=== PATIENT | female | born 1950 | race Caucasian/White ===

== ENCOUNTER 2022-01-02 11:40 | Inpatient (IN) | payer OTHER, MEDICARE, SELFPAY ==
--- NOTE | ~2022-01-02 | XR_ITS ---
EXAMINATION: XR CHEST CLINICAL INFORMATION: Mental status change COMPARISON: None TECHNIQUE: Frontal view of the chest was obtained. FINDINGS: The cardiac and mediastinal contours are normal. The lungs are clear. There is no pleural effusion or pneumothorax. There are degenerative changes of the spine. XR/XR chest 1V IMPRESSION: No evidence for acute disease in the chest.
--- NOTE | ~2022-01-02 | MR_ITS ---
EXAMINATION: MR BRAIN WITHOUT CONTRAST CLINICAL INFORMATION: Seizures. COMPARISON: CT head from 01/02/2022. TECHNIQUE: MRI of the brain was obtained using routine sequences without contrast. FINDINGS: Changes of left parietal craniotomy. No focal restricted diffusion is demonstrated to suggest acute or subacute cerebral ischemia. No evidence of acute or chronic hemorrhagic products on heme-sensitive imaging. Scattered periventricular and deep white matter T2 FLAIR hyperintensities consistent with mild underlying microangiopathy. Proportional prominence of the ventricles and sulcal spaces without evidence of obstructive hydrocephalus. No abnormal mass effect. No midline shift. The hippocampi are symmetric in size, contour, and signal intensity. The temporal horns appear symmetric. Normal appearance of the pituitary gland. Normal positioning of the cerebellar tonsils. Normal arterial and venous vascular flow voids are present. Normal, homogeneous marrow signal. Moderate degenerative spondyloarthropathy of the visualized upper cervical spine. Mild mucosal thickening of the paranasal sinuses. Small mucous retention cyst within the left maxillary sinus. No signal abnormalities within the mastoids. MR/MR head/brain wo con IMPRESSION: 1. No acute intracranial abnormalities. 2. Mild underlying microangiopathy. 3. No additional demonstrated abnormalities to explain the patient's symptoms
--- NOTE | ~2022-01-02 | CT_ITS ---
EXAMINATION: CT ANGIOGRAM OF THE CHEST WITH AND WITHOUT CONTRAST (CT PULMONARY ANGIOGRAM FOR PE) CLINICAL INFORMATION: Reason for Exam Hypoxia, recent travel, elevated D-dimer. COMPARISON: Previous chest x-ray from earlier the same day TECHNIQUE: Prior to contrast administration, noncontrast localization images were obtained. Subsequently, multidetector volumetric imaging was performed from the thoracic inlet to below the diaphragms following the administration of 61 mL Omnipaque 350 intravenous contrast. No contrast reaction reported Sagittal, coronal, and MIP oblique sagittal reformatted images were obtained on the CT workstation, uploaded to PACS, and reviewed. This CT examination was performed using dose optimization techniques as appropriate, variously including the following: *Automated exposure control *Adjustment of mA and/or kV according to patient size (this includes techniques or standardized protocols for targeted exams where dose is matched to indication/reason for exam; i.e. extremities or head) *Use of iterative reconstruction technique Total exam dose-length product 341 mGy-cm FINDINGS: QUALITY OF STUDY/CONTRAST BOLUS: Satisfactory. PULMONARY ARTERIES: No central or segmental pulmonary emboli. THORACIC AORTA: No aneurysm or dissection. LUNG: There is elevation of the right hemidiaphragm. There is subsegmental atelectasis in both lower lobes. The lungs are otherwise clear. PLEURA: No pleural effusion or pneumothorax. MEDIASTINUM: Normal heart size. Very small pericardial effusion. Small mediastinal lymph nodes.. No evidence of septal bowing or right heart strain. CHEST WALL/AXILLA: No axillary or internal mammary lymphadenopathy. OSSEOUS STRUCTURES: No acute or suspicious osseous abnormality. Degenerative changes of the spine. UPPER ABDOMEN: There is diverticulosis of the colon. No reflux of contrast into the hepatic veins to suggest elevated right heart pressures. CT/CT angio chest PE protocol IMPRESSION: No evidence of pulmonary embolism. Elevated right hemidiaphragm. Subsegmental atelectasis in both lower lobes. VTE: negative
--- NOTE | ~2022-01-02 | CT_ITS ---
EXAMINATION: CT CERVICAL SPINE WITHOUT CONTRAST CLINICAL INFORMATION: Neck pain post seizure COMPARISON: None TECHNIQUE: Axial images through the cervical spine without contrast. Sagittal and coronal reconstructions on the technologist workstation were performed. This CT examination was performed using dose optimization techniques as appropriate, variously including the following: *Automated exposure control *Adjustment of mA and/or kV according to patient size (this includes techniques or standardized protocols for targeted exams where dose is matched to indication/reason for exam; i.e. extremities or head) *Use of iterative reconstruction technique DLP: 518 mGy-cm FINDINGS: Bone alignment is normal. No fracture or dislocation is seen. There is degenerative spondylosis and degenerative disc disease from C3-C4 to T1-T2. There is narrowing of the spinal canal from bony osteophyte or calcified disc osteophyte complex greatest at C5-C6. There are degenerative changes at the C1 dens articulation. Prevertebral soft tissues are normal. Visualized lung apices are clear. CT/CT cervical spine wo con IMPRESSION: Degenerative changes. No fracture or dislocation seen. Fleischner guidelines were followed.
--- NOTE | ~2022-01-02 | CT_ITS ---
EXAMINATION: CT HEAD WITHOUT CONTRAST (STROKE PROTOCOL) CLINICAL INFORMATION: Stroke protocol. Change in mental status. COMPARISON: None TECHNIQUE: Contiguous axial imaging was performed from the skull base to vertex without intravenous administration of contrast. This CT examination was performed using dose optimization techniques as appropriate, variously including the following: *Automated exposure control *Adjustment of mA and/or kV according to patient size (this includes techniques or standardized protocols for targeted exams where dose is matched to indication/reason for exam; i.e. extremities or head) *Use of iterative reconstruction technique DLP: 669 mGy-cm. FINDINGS: There is no intracranial hemorrhage, hematoma, or extra-axial fluid collection. The ventricles are normal in size. There is no hydrocephalus, edema, or mass effect. The kendrick-white matter differentiation appears symmetric. There is no acute infarct or mass lesion. There are postsurgical changes to the left anterior parietal bone with craniotomy defect. The calvarium appears otherwise intact. There is no pneumocephalus or orbital emphysema. The visualized sinuses and middle ears and mastoid air cells show no significant mucosal thickening. There are no air-fluid levels. CT/CT head for stroke IMPRESSION: No acute intracranial pathology. Postsurgical change to the left anterior parietal lobe. This critical result was discussed with Dr. Parks at 1226 hours on 01/02/2022. It was ascertained that the content and urgency of the report was understood at the time of direct communication.
[2022-01-02 11:42] VITALS: BP 133/64; PULSE 78; RESP 18; TEMP 36.8; O2SAT 98; BMI 27.4
--- NOTE | 2022-01-02 11:59 | ECG_ITS ---
Test Reason : ?STROKE Blood Pressure : / mmHG Vent. Rate : 077 BPM Atrial Rate : 077 BPM P-R Int : 158 ms QRS Dur : 078 ms QT Int : 410 ms P-R-T Axes : 063 038 085 degrees QTc Int : 463 ms Normal sinus rhythm Nonspecific T wave abnormality Borderline ECG No previous ECGs available Referred By: Jorge Parks Electronically Signed By:TORREY AGUIAR
[2022-01-02 12:04] LABS: Glucose, Whole Blood 120 mg/dL (60-115)
[2022-01-02 12:07] LABS: MANUAL DIFF FLAG NO
[2022-01-02 12:08] LABS: Basophils Percent Auto 0.2 % (0-2); Hematocrit 40.4 % (37.0-47.0); Hemoglobin 13.8 g/dl (12.0-16.0); Imm Gran Abs Auto 0.07 X10*3/uL (0.00-0.03); Imm Gran Pct Auto 0.5 % (0.0-0.4); Lymphocytes Absolute Auto 1.3 X10*3/uL (1.2-4.9); Lymphocytes Percent Auto 9.6 % (20-40); Mean Corpuscular HGB Conc 34.2 g/dl (31.0-35.0); Mean Corpuscular Hemoglobin 32.7 pg (27.0-33.0); Mean Corpuscular Volume 95.7 fL (80.0-98.0); Mean Platelet Volume 10.3 fL (9.4-12.3); Monocytes Absolute Auto 0.5 X10*3/uL (0.1-1.2); Monocytes Percent Auto 3.3 % (2-11); Neutrophils Absolute Auto 11.8 x10*3/uL (2.0-8.3); Neutrophils Percent Auto 86.4 % (45-73); Platelet Count 287 X10*3/uL (160-400); Red Blood Count 4.22 X10*6/uL (4.20-5.50); Red Cell Distribution Width 11.9 % (11.0-16.0); White Blood Count 13.7 X10*3/uL (4.8-10.8)
[2022-01-02 12:12] LABS: Prothrombin Time Whole Bld POC 11.3 sec (11.1-13.5); ~PT, ~INR - Anti Coag Clinic 0.9 (0.9-1.1)
[2022-01-02 12:14] LABS: Prothrombin Time 11.4 SEC (9.9-13.0)
[2022-01-02 12:16] LABS: Partial Thromboplastin Time 37.8 SEC (24.1-38.0)
[2022-01-02 12:24] LABS: Anion Gap 14 (12-20); Blood Urea Nitrogen 22 mg/dL (9-16); Calcium 9.4 mg/dL (8.4-10.2); Carbon Dioxide 26 mmol/L (22-29); Chloride 103 mmol/L (96-108); Creatinine Clr Calc Pharmacy 76.2; Estimated Glomerular Filt Rate > 60; Glucose Random 128 mg/dL (60-115); Potassium 4.3 mmol/L (3.3-5.1); Sodium 139 mmol/L (135-145)
[2022-01-02 12:41] LABS: Troponin-I High Sensitivity 158.1 ng/L (<3.5-17.0)
--- NOTE | 2022-01-02 12:43 | ED_ITS ---
HPI - Neuro Symptoms/Deficit General Chief Complaint: Stroke Stated Complaint: quest of stroke Time Seen by Provider: 01/02/22 11:59 Source: patient and family (Son and daughter) Mode of arrival: ambulatory Limitations: no limitations History of Present Illness HPI Narrative: 71-year-old female brought in by her son for possible seizure versus stroke. 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 At 11:00 she was sitting in bed talking to her son who observed seizure activity with her extremities and patient was staring and him without responding to him lasted for less than a minute, then patient became confused and disoriented for sometimes until patient gradually regained her normal status, patient still sustaining intermittent mild dysarthria because the laceration on her tongue.Otherwise no gross weakness or loss of sensation. Patient declined chest pain. Related Data Home Medications Medication Instructions Recorded Confirmed atorvastatin 40 mg tablet 1 tab PO DAILY 01/02/22 01/02/22 escitalopram oxalate 10 mg tablet 1 tab PO BEDTIME 01/02/22 01/02/22 escitalopram oxalate 20 mg tablet 1 tab PO QAM 01/02/22 01/02/22 meloxicam 15 mg tablet 1 tab PO DAILY 01/02/22 01/02/22 oxcarbazepine 150 mg tablet 2 tab PO BID 01/02/22 01/02/22 Allergies Allergy/AdvReac Type Severity Reaction Status Date / Time No Known Allergies Allergy Verified 01/02/22 11:59 Review of Systems Review of Systems: All other systems are reviewed and are negative Constitutional: Reports as per HPI and Reports no additional constitutional complaints Eyes: Reports as per HPI and Reports no additional eye complaints Reports system reviewed and no additional complaints, except as documented Cardiovascular: Reports as per HPI and Reports no additional cardiovascular complaints Respiratory: Reports as per HPI and Reports no additional respiratory complaints Gastrointestinal: Reports as per HPI and Reports no additional gastrointestinal complaints Genitourinary: Reports no additional female genitourinary complaints Musculoskeletal: Reports no additional musculoskeletal complaints Skin/Breast: Reports system reviewed and no additional complaints, except as docu Psychiatric: Reports no additional psychiatric complaints Endocrine: Reports no additional endocrine complaints Hematologic/Lymphatic: Reports no additional hematologic/lymphatic complaints Allergic/Immunologic: Reports no additional allergic/immunologic complaints Reports system reviewed and no additional complaints, except as documented and Reports Abnormal speech present [facility] Social History Social History Advance Directives: No Advance Directives Information Provided: No Physical Exam Vital Signs: Vital Signs: Last Vital Signs Temp 99.9 F 01/02/22 15:06 Pulse 79 01/02/22 15:06 Resp 22 H 01/02/22 15:06 BP 101/52 L 01/02/22 15:06 Pulse Ox 92 01/02/22 15:06 BMI result Body Mass Index 27.4 Vital signs have been reviewed as appeared to be correct. Blood pressure normal. Heart rate normal. Respiration rate normal. Temperature normal. Oxygen saturation normal. Appearance: Alert. Oriented X3. No acute distress. Head: Normal external exam. Normocephalic. Atraumatic. No Lucio signs noted. No raccoon eyes noted Eyes: PERRLA. EOMI. Conjunctiva and sclera normal. Eyelids normal. ENT: TM's Normal. Pharynx normal. Uvula midline. Moist mucous membranes. No trismus noted. No drooling noted. No muffled voice noted. Small laceration on right side of the tongue with no active bleeding. Neck: Normal inspection. Neck supple. FROM. No adenopathy. Thyroid Normal. No meningeal signs. No neck mass noted. CVS: Normal heart rate and rhythm. Heart sound normal. No murmurs noted. Pulses normal throughout. Respiratory: No respiratory distress. Painless inspiration. Breath sounds normal. No wheezes/rales/rhonchi noted. Chest nontender. No accessory muscle usage noted or decreased air movement noted. Abdomen: Soft and nontender. Bowel sounds normal in all 4 quadrants. No distention noted. No organomegaly noted. No visible injury noted. Back: No CVA tenderness. Full range of motion noted. Skin: Skin warm and dry. Normal skin color. Normal skin turgor. No rashes/lesions/lacerations noted. Extremities: No lower extremity edema. Extremities exhibit normal range of motion. Extremities nontender. Neuro: Oriented X 3. Cranial nerve exam: II-XII are grossly intact No motor deficit. No sensory deficit. Reflexes normal. Course Course Course Narrative: Assessment and plan. 71-year-old female brought him by family for change mental status, being dysarthric, with episodes of mental status changes and disorientation, presentation and clinical scenario is consistent with likely seizure. Case discussed with Dr. Romano, will load with Keppra 1000 mg p.o., admit for EEG, and MRI in the morning. 2. Patient found to be hypoxic in the emergency department for unclear etiology because the recent travel from [place] and mildly elevated D-dimer CT of the chest was considered which showed no acute pathology. 3. Patient has no chest pain, EKG is unremarkable for acute ischemic or ACS, 1st troponin was elevated, 2nd troponin 3 hours later is trending down, patient is still asymptomatic with no chest pain or shortness of breath. MDM - Neuro Symptoms/Deficit Medical Records Attestation: I reviewed the patient's medical records. Lab Data Attestation: I reviewed the patient's lab results. Result diagrams: 01/02/22 12:04 01/02/22 12:04 Labs: Lab Results 01/02/22 01/02/22 01/02/22 Range/Units 11:57 11:58 12:04 WBC 13.7 H (4.8-10.8) X10*3/uL RBC 4.22 (4.20-5.50) X10*6/uL Hgb 13.8 (12.0-16.0) g/dl Hct 40.4 (37.0-47.0) % MCV 95.7 (80.0-98.0) fL MCH 32.7 (27.0-33.0) pg MCHC 34.2 (31.0-35.0) g/dl RDW 11.9 (11.0-16.0) % Plt Count 287 (160-400) X10*3/uL MPV 10.3 (9.4-12.3) fL Immature Gran % (Auto) 0.5 H (0.0-0.4) % Neut % (Auto) 86.4 H (45-73) % Lymph % (Auto) 9.6 L (20-40) % [place] % (Auto) 3.3 (2-11) % Eos % (Auto) 0.0 (0-4) % Baso % (Auto) 0.2 (0-2) % Lymph # (Auto) 1.3 (1.2-4.9) X10*3/uL [place] # (Auto) 0.5 (0.1-1.2) X10*3/uL Eos # (Auto) 0.0 (0.0-0.4) X10*3/uL Baso # (Auto) 0.0 (0.0-0.2) X10*3/uL Abs Immat Gran (auto) 0.07 H (0.00-0.03) X10*3/uL Absolute Neuts (auto) 11.8 H (2.0-8.3) x10*3/uL Absolute Nucleated RBC 0.000 (0.0-0.012) X10*3/uL Nucleated RBC % (auto) 0.0 (0.0-0.2) /100WBC PT (9.9-13.0) SEC Whole Blood PT 11.3 (11.1-13.5) sec INR (0.9-1.1) Whole Blood INR 0.9 (0.9-1.1) APTT (24.1-38.0) SEC D-Dimer High Sensitivty NG/ML Sodium (135-145) mmol/L Potassium (3.3-5.1) mmol/L Chloride (96-108) mmol/L Carbon Dioxide (22-29) mmol/L Anion Gap (12-20) BUN (9-16) mg/dL Creatinine (0.5-1.4) mg/dL Estim Creat Clear Calc Estimated GFR POC Glucose 120 H (60-115) mg/dL Random Glucose (60-115) mg/dL Calcium (8.4-10.2) mg/dL Total Creatine Kinase (26-140) U/L Troponin I High Sens (<3.5-17.0) ng/L 01/02/22 01/02/22 01/02/22 Range/Units 12:04 12:04 12:04 WBC (4.8-10.8) X10*3/uL RBC (4.20-5.50) X10*6/uL Hgb (12.0-16.0) g/dl Hct (37.0-47.0) % MCV (80.0-98.0) fL MCH (27.0-33.0) pg MCHC (31.0-35.0) g/dl RDW (11.0-16.0) % Plt Count (160-400) X10*3/uL MPV (9.4-12.3) fL Immature Gran % (Auto) (0.0-0.4) % Neut % (Auto) (45-73) % Lymph % (Auto) (20-40) % [place] % (Auto) (2-11) % Eos % (Auto) (0-4) % Baso % (Auto) (0-2) % Lymph # (Auto) (1.2-4.9) X10*3/uL [place] # (Auto) (0.1-1.2) X10*3/uL Eos # (Auto) (0.0-0.4) X10*3/uL Baso # (Auto) (0.0-0.2) X10*3/uL Abs Immat Gran (auto) (0.00-0.03) X10*3/uL Absolute Neuts (auto) (2.0-8.3) x10*3/uL Absolute Nucleated RBC (0.0-0.012) X10*3/uL Nucleated RBC % (auto) (0.0-0.2) /100WBC PT 11.4 (9.9-13.0) SEC Whole Blood PT (11.1-13.5) sec INR 1.0 (0.9-1.1) Whole Blood INR (0.9-1.1) APTT 37.8 (24.1-38.0) SEC D-Dimer High Sensitivty 269 NG/ML Sodium 139 (135-145) mmol/L Potassium 4.3 (3.3-5.1) mmol/L Chloride 103 (96-108) mmol/L Carbon Dioxide 26 (22-29) mmol/L Anion Gap 14 (12-20) BUN 22 H (9-16) mg/dL Creatinine 0.68 (0.5-1.4) mg/dL Estim Creat Clear Calc 76.2 Estimated GFR > 60 POC Glucose (60-115) mg/dL Random Glucose 128 H (60-115) mg/dL Calcium 9.4 (8.4-10.2) mg/dL Total Creatine Kinase 107 (26-140) U/L Troponin I High Sens 158.1 H* (<3.5-17.0) ng/L 01/02/22 Range/Units 15:15 WBC (4.8-10.8) X10*3/uL RBC (4.20-5.50) X10*6/uL Hgb (12.0-16.0) g/dl Hct (37.0-47.0) % MCV (80.0-98.0) fL MCH (27.0-33.0) pg MCHC (31.0-35.0) g/dl RDW (11.0-16.0) % Plt Count (160-400) X10*3/uL MPV (9.4-12.3) fL Immature Gran % (Auto) (0.0-0.4) % Neut % (Auto) (45-73) % Lymph % (Auto) (20-40) % [place] % (Auto) (2-11) % Eos % (Auto) (0-4) % Baso % (Auto) (0-2) % Lymph # (Auto) (1.2-4.9) X10*3/uL [place] # (Auto) (0.1-1.2) X10*3/uL Eos # (Auto) (0.0-0.4) X10*3/uL Baso # (Auto) (0.0-0.2) X10*3/uL Abs Immat Gran (auto) (0.00-0.03) X10*3/uL Absolute Neuts (auto) (2.0-8.3) x10*3/uL Absolute Nucleated RBC (0.0-0.012) X10*3/uL Nucleated RBC % (auto) (0.0-0.2) /100WBC PT (9.9-13.0) SEC Whole Blood PT (11.1-13.5) sec INR (0.9-1.1) Whole Blood INR (0.9-1.1) APTT (24.1-38.0) SEC D-Dimer High Sensitivty NG/ML Sodium (135-145) mmol/L Potassium (3.3-5.1) mmol/L Chloride (96-108) mmol/L Carbon Dioxide (22-29) mmol/L Anion Gap (12-20) BUN (9-16) mg/dL Creatinine (0.5-1.4) mg/dL Estim Creat Clear Calc Estimated GFR POC Glucose (60-115) mg/dL Random Glucose (60-115) mg/dL Calcium (8.4-10.2) mg/dL Total Creatine Kinase (26-140) U/L Troponin I High Sens 128.9 H* (<3.5-17.0) ng/L Imaging Data CT of the chest: Attestation: I personally reviewed and interpreted this imaging study as follows: Radiologist's impression: No evidence of pulmonary embolism. Elevated right hemidiaphragm. Subsegmental atelectasis in both lower lobes. ? Chest x-ray: Attestation: I personally reviewed and interpreted this imaging study as follows: Radiologist's impression: No evidence for acute disease in the chest. CT scan - head: Attestation: I personally reviewed and interpreted this imaging study as follows: Radiologist's impression: No acute pathology. Cervical spine CT: Attestation: I personally reviewed and interpreted this imaging study as follows: Radiologist's impression: Degenerative changes, no subluxation, no fracture, no malalignment. ECG Data Attestation: I personally reviewed and interpreted this ECG as follows: Interpretation: Normal sinus rhythm at 77 beats per minute, normal axis deviation, normal intervals, nonspecific flattening of T-wave. NIH Stroke Scale Level of Consciousness: Alert Level of Consciousness Questions: Answers both questions correctly Level of Consciousness Commands: Performs both tasks correctly Best Gaze: Normal Visual: No visual loss Facial Palsy: Normal Motor Arm (Right): No drift Motor Arm (Left): No drift Motor Leg (Right): No drift Motor Leg (Left): No drift Limb Ataxia: Absent Sensory: Normal Best Language: Mild to moderate aphasia Dysarthia: Normal Extinction and Inattention: No abnormality Score: 1 Discharge Plan Discharge Clinical Impression: Seizure, Elevated troponin, Hypoxia Patient Disposition: Admitted As Inpatient
[2022-01-02 12:55] LABS: Stroke Lab Use COMPLETE
[2022-01-02] MEDS: levETIRAcetam 1,000 MG TABLET 1000 MG PO ×2 (13:20→20:16)
[2022-01-02 13:43] VITALS: BP 117/63; PULSE 82; RESP 13; RESP 24; TEMP 37.6; O2SAT 82; O2SAT 93
[2022-01-02 14:00] LABS: D Dimer High Sensitivity 269 NG/ML
[2022-01-02] MEDS: iohexoL 350 MG/ML 100 ML INFUS..BTL IV (14:59)
[2022-01-02 15:06] VITALS: BP 101/52; PULSE 79; RESP 22; TEMP 37.7; O2SAT 92
[2022-01-02 15:43] LABS: Troponin-I High Sensitivity 128.9 ng/L (<3.5-17.0)
--- NOTE | 2022-01-02 16:26 | MHC.STROKE ---
1140 WALK-IN, STROKE PROTOCOL ACTIVATED. STAT CT HEAD, NO BLEED OLD POST-SURGICAL CHANGES LEFT PARIETAL. NIHSS = 1, DYSARTHRIA, PASSED SWALLOW. SUSPECTED SEIZURE, SHE BIT HER TONGUE. SEE DR MATHEWS'S NOTE. I WILL CONTINUE TO FOLLOW.
--- NOTE | 2022-01-02 16:43 | PM.IMHP ---
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 Patient presents with son who states this morning his mother woke up with a headache and took some Motrin went back to bed. When she finally came down stairs she was sitting with him and he noticed her developed a stare that lasted approximately a minute to minute and half during which he observe some hand twitching. He called the ambulance that she presented to the emergency room where she had another witnessed event by ER personnel. ER workup including CT of the head and CTA of the chest failed to demonstrate any acute intracranial pathology. Of note, her sats were in the high 80s when she arrived at the ER and required supplemental O2 to correct. CTA was negative for PE; chest x-ray clear. She has no significant smoking history or history of any chronic lung disease. She was given a loading dose of Keppra at neurology's request and will be admitted to telemetry on seizure precautions for further workup in the a.m.When speaking with son, he states his mother has been describing these nocturnal events for many years however has not followed through with evaluation. Question if she has been having the seizures all along or are they new onset Review of Systems Review of Systems: Denies chest pain Denies shortness of breath Denies nausea vomiting diarrhea Complains of mild headache PMFSH Social History Advance Directives: No Advance Directives Information Provided: No Meds Allergies Allergy/AdvReac Type Severity Reaction Status Date / Time No Known Allergies Allergy Verified 01/02/22 11:59 Active Medications: Current Medications Acetaminophen (Acetaminophen 325 Mg Tablet) 650 mg PO Q6H PRN PRN Reason: Pain, Mild (Pain Scale 1-3) Atorvastatin Calcium (Atorvastatin Calcium 40 Mg Tablet) 40 mg PO DAILY JENNA Enoxaparin Sodium (Enoxaparin Sodium 40 Mg/0.4 Ml Syringe) 40 mg SUBCUT Q24H JENNA Escitalopram Oxalate (Escitalopram Oxalate 10 Mg Tablet) 10 mg PO BEDTIME JENNA Escitalopram Oxalate (Escitalopram Oxalate 20 Mg Tablet) 20 mg PO QAM JENNA Non-Formulary Medication (Meloxicam) 1 tab PO DAILY JENNA Ondansetron HCl (Ondansetron Hcl 4 Mg/2 Ml Vial) 4 mg IVPUSH Q8H PRN PRN Reason: Nausea and Vomiting Oxcarbazepine (Oxcarbazepine 300 Mg Tablet) 300 mg PO BID REPLACED BY [facility] Sodium Chloride (0.9 % Sodium Chloride Flush 3 Ml Syringe) 3 ml IVFLUSH QSHIFT REPLACED BY [facility] Home Medications Medication Instructions Recorded Confirmed Last Taken Type atorvastatin 40 mg tablet 1 tab PO DAILY 01/02/22 01/02/22 01/02/22 History escitalopram oxalate 10 mg tablet 1 tab PO BEDTIME 01/02/22 01/02/22 01/01/22 History escitalopram oxalate 20 mg tablet 1 tab PO QAM 01/02/22 01/02/22 01/02/22 History meloxicam 15 mg tablet 1 tab PO DAILY 01/02/22 01/02/22 01/02/22 History oxcarbazepine 150 mg tablet 2 tab PO BID 01/02/22 01/02/22 01/02/22 History Physical Exam Vital Signs and Narrative: Vital Signs: Last Vital Signs Temp 99.9 F 01/02/22 15:06 Pulse 79 01/02/22 15:06 Resp 22 H 01/02/22 15:06 BP 101/52 L 01/02/22 15:06 Pulse Ox 92 01/02/22 15:06 BMI result Body Mass Index 27.4 Const: Other: Awake alert oriented x3 no acute distress HENMT: Other: Evidence of tongue biting noted Resp: Other: Clear to auscultation bilaterally; no rales rhonchi or wheezes Cardio: Other: No S4; positive S1-S2; no S3 murmurs or gallops GI: Other: Soft nontender nondistended with normoactive bowel sounds x4 quadrants Neuro: Other: Cranial nerves 2-12 are grossly intact as tested. Motor is 5/5 in all extremities. Sensation is intact. Gait directly observed and is steady normal based. Cognition appropriate Extrem: Other: No edema bilateral Results Labs CBC and Chem 7: 01/02/22 12:04 01/02/22 12:04 Labs: Laboratory Results - last 24 hr 01/02/22 01/02/22 01/02/22 11:57 11:58 12:04 MCV 95.7 MCH 32.7 MCHC 34.2 RDW 11.9 Plt Count 287 MPV 10.3 Immature Gran % (Auto) 0.5 H Neut % (Auto) 86.4 H Lymph % (Auto) 9.6 L [place] % (Auto) 3.3 Eos % (Auto) 0.0 Baso % (Auto) 0.2 Lymph # (Auto) 1.3 [place] # (Auto) 0.5 Eos # (Auto) 0.0 Baso # (Auto) 0.0 Abs Immat Gran (auto) 0.07 H Absolute Neuts (auto) 11.8 H Absolute Nucleated RBC 0.000 Nucleated RBC % (auto) 0.0 PT Whole Blood PT 11.3 INR Whole Blood INR 0.9 APTT D-Dimer High Sensitivty Anion Gap Estim Creat Clear Calc Estimated GFR POC Glucose 120 H Random Glucose Calcium Total Creatine Kinase 01/02/22 01/02/22 12:04 12:04 MCV MCH MCHC RDW Plt Count MPV Immature Gran % (Auto) Neut % (Auto) Lymph % (Auto) [place] % (Auto) Eos % (Auto) Baso % (Auto) Lymph # (Auto) [place] # (Auto) Eos # (Auto) Baso # (Auto) Abs Immat Gran (auto) Absolute Neuts (auto) Absolute Nucleated RBC Nucleated RBC % (auto) PT 11.4 Whole Blood PT INR 1.0 Whole Blood INR APTT 37.8 D-Dimer High Sensitivty 269 Anion Gap 14 Estim Creat Clear Calc 76.2 Estimated GFR > 60 POC Glucose Random Glucose 128 H Calcium 9.4 Total Creatine Kinase 107 Imaging Radiologist's Impressions: Impressions Head CT 01/02/22 12:13 IMPRESSION: No acute intracranial pathology. Postsurgical change to the left anterior parietal lobe. This critical result was discussed with Dr. Parks at 1226 hours on 01/02/2022. It was ascertained that the content and urgency of the report was understood at the time of direct communication. Cervical Spine CT 01/02/22 12:30 IMPRESSION: Degenerative changes. No fracture or dislocation seen. Fleischner guidelines were followed. Chest X-Ray 01/02/22 12:40 IMPRESSION: No evidence for acute disease in the chest. Chest CTA 01/02/22 15:04 IMPRESSION: No evidence of pulmonary embolism. Elevated right hemidiaphragm. Subsegmental atelectasis in both lower lobes. VTE: negative Assessment and Plan (1) Seizure: Status: Acute (2) Elevated troponin: Status: Acute (3) Hypoxia: Status: Acute Plan 71-year-old female with remote history of TBI presents today with son after what was described as a focal seizure. This event was witnessed again by ER personnel. In the ER neurology was contacted requesting patient to be admitted for further workup. Loading dose of Keppra was given. 1. Seizures(query new onset vs. new discovery) -admit to Telemetry...seizure precautions -continue Keppra BID until instructed otherwise by Neurology -book MRI brai/EEG in am -Neurology consult in am 2.Hypoxemia(unknown etiology) -Follow Aashish overnight... -Pulmonary consult in am 3. Elevated troponin( likely demand0 -trend in am 4. Depression(?BPD) -continue Trileptal/SSRI Lovenox Fulls Code Quality Stroke Does the patient have a stroke diagnosis?: No VTE Prior VTE?: No VTE Risk Level:: Medical - moderate - high VTE Device Contraindication: Treatment Not Indicated VTE Drug Contraindication: N/A - Med Ordered
[2022-01-02] MEDS: Enoxaparin Sodium 40 MG/0.4 ML SYRINGE SUBCUT (17:09)
[2022-01-02 17:10] LABS: B Type Natriuretic Peptide 164 pg/mL (<100)
[2022-01-02 18:44] VITALS: BP 100/48; PULSE 73; RESP 20; TEMP 37.2; O2SAT 92
[2022-01-02 19:44] VITALS: BP 103/52; PULSE 76; RESP 15; TEMP 37.2; O2SAT 93
[2022-01-02] MEDS: Acetaminophen 325 MG TABLET 650 MG PO (20:14)
[2022-01-02] MEDS: NaPROXEN 500 MG TABLET PO (20:15)
[2022-01-02] MEDS: OXcarbazepine 300 MG TABLET PO (20:15)
[2022-01-02] MEDS: Escitalopram Oxalate 10 MG TABLET PO (20:16)
[2022-01-02 22:56] VITALS: BP 100/56; PULSE 68; RESP 22; TEMP 37.3; O2SAT 92
[2022-01-03] VITALS (9 sets, daily range): BP systolic 97–125; BP diastolic 55–76; PULSE 62–101; RESP 17–23; TEMP 36.3–37.2; O2SAT 90–97
--- NOTE | 2022-01-03 01:50 | PC.NURSE ---
Pt asleep on stretcher in NAD breathing with ease on NC in between care. Pt awakes when this RN to bedside, pt reports CERNA is no longer present. Pt denies toileting needs at this time. Stretcher low locked, rails raised, call capps within reach.
--- NOTE | 2022-01-03 02:06 | PC.NURSE ---
Pt bladder scanned as pt has not urinated since this RN arrival at 1845. Pt reports she urinated prior to this RN arrival. Pt bladder scan shows 275cc
[2022-01-03 06:41] LABS: MANUAL DIFF FLAG NO
--- NOTE | 2022-01-03 06:54 | PC.NURSE ---
pt ambulates with steady gait to bathroom with standby assist from this RN pt denies dizziness/weakness. pt speaking in complete clear sentences.
[2022-01-03 06:55] LABS: Basophils Absolute Auto 0.1 X10*3/uL (0.0-0.2); Basophils Percent Auto 0.6 % (0-2); Eosinophils Absolute Auto 0.1 X10*3/uL (0.0-0.4); Eosinophils Percent Auto 0.8 % (0-4); Hematocrit 36.3 % (37.0-47.0); Hemoglobin 12.3 g/dl (12.0-16.0); Imm Gran Abs Auto 0.03 X10*3/uL (0.00-0.03); Imm Gran Pct Auto 0.3 % (0.0-0.4); Lymphocytes Percent Auto 32.9 % (20-40); Mean Corpuscular HGB Conc 33.9 g/dl (31.0-35.0); Mean Corpuscular Hemoglobin 32.5 pg (27.0-33.0); Mean Corpuscular Volume 95.8 fL (80.0-98.0); Mean Platelet Volume 10.5 fL (9.4-12.3); Monocytes Absolute Auto 0.8 X10*3/uL (0.1-1.2); Monocytes Percent Auto 9.3 % (2-11); Neutrophils Absolute Auto 5.1 x10*3/uL (2.0-8.3); Neutrophils Percent Auto 56.1 % (45-73); Platelet Count 258 X10*3/uL (160-400); Red Blood Count 3.79 X10*6/uL (4.20-5.50); Red Cell Distribution Width 12.1 % (11.0-16.0)
[2022-01-03 07:08] LABS: Alanine Aminotransferase 19 U/L (0-31); Albumin Level 3.7 g/dL (3.5-5.0); Alkaline Phosphatase 47 U/L (39-117); Anion Gap 11 (12-20); Aspartate Amino Transferase 18 U/L (5-31); Bilirubin Total 1.1 mg/dL (0.0-1.0); Blood Urea Nitrogen 20 mg/dL (9-16); Calcium 9.1 mg/dL (8.4-10.2); Carbon Dioxide 29 mmol/L (22-29); Chloride 104 mmol/L (96-108); Creatinine Clr Calc Pharmacy 79.7; Estimated Glomerular Filt Rate > 60; Glucose Fasting 101 mg/dL (60-99); Potassium 4.1 mmol/L (3.3-5.1); Sodium 140 mmol/L (135-145); Total Protein 5.7 g/dL (6.5-8.0)
[2022-01-03 07:56] LABS: COVID-19 Test Negative (Negative)
--- NOTE | 2022-01-03 09:59 | PC.NURSE ---
away for MRI
[2022-01-03] MEDS: OXcarbazepine 300 MG TABLET PO ×2 (11:09→20:11)
[2022-01-03] MEDS: NaPROXEN 500 MG TABLET PO ×2 (11:09→20:11)
[2022-01-03] MEDS: levETIRAcetam 1,000 MG TABLET 1000 MG PO ×2 (11:09→20:11)
[2022-01-03] MEDS: Escitalopram Oxalate 20 MG TABLET PO (11:10)
[2022-01-03] MEDS: 0.9 % Sodium Chloride Flush 3 ML SYRINGE IVFLUSH ×3 (11:10→20:11)
--- NOTE | 2022-01-03 12:48 | HO.PM.IMPN ---
Subjective Subjective Date of Service: 01/03/22 Interval History: No acute issues overnight. No further seizure activity Review of Systems Denies chest pain Denies shortness of breath Denies nausea vomiting Physical Exam Vital Signs: Vital Signs: Last Vital Signs Temp 98.6 F 01/03/22 06:47 Pulse 67 01/03/22 06:55 Resp 23 H 01/03/22 06:55 BP 110/55 L 01/03/22 06:55 Pulse Ox 94 01/03/22 06:55 BMI result Body Mass Index 27.4 Const: Other: Awake alert oriented x3 no acute distress HENMT: Other: Evidence of tongue biting noted Resp: Other: Clear to auscultation bilaterally; no rales rhonchi or wheezes Cardio: Other: No S4; positive S1-S2; no S3 murmurs or gallops GI: Other: Soft nontender nondistended with normoactive bowel sounds x4 quadrants Neuro: Other: Cranial nerves 2-12 are grossly intact as tested. Motor is 5/5 in all extremities. Sensation is intact. Gait directly observed and is steady normal based. Cognition appropriate Extrem: Other: No edema bilateral Objective Data Active Medications Acetaminophen (Acetaminophen 325 Mg Tablet) 650 mg PO Q6H PRN PRN Reason: Pain, Mild (Pain Scale 1-3) Last Admin: 01/02/22 20:14 Dose: 650 mg Documented by: BECCA Atorvastatin Calcium (Atorvastatin Calcium 40 Mg Tablet) 40 mg PO BEDTIME [facility] Enoxaparin Sodium (Enoxaparin Sodium 40 Mg/0.4 Ml Syringe) 40 mg SUBCUT Q24H [facility] Last Admin: 01/02/22 17:09 Dose: 40 mg Documented by: REID Escitalopram Oxalate (Escitalopram Oxalate 10 Mg Tablet) 10 mg PO BEDTIME [facility] Last Admin: 01/02/22 20:16 Dose: 10 mg Documented by: BECCA Escitalopram Oxalate (Escitalopram Oxalate 20 Mg Tablet) 20 mg PO DAILY [facility] Last Admin: 01/03/22 11:10 Dose: 20 mg Documented by: CORINNE Levetiracetam (Levetiracetam 1,000 Mg Tablet) 1,000 mg PO BID [facility] Last Admin: 01/03/22 11:09 Dose: 1,000 mg Documented by: CORINNE Naproxen (Naproxen 500 Mg Tablet) 500 mg PO BID [facility] Last Admin: 01/03/22 11:09 Dose: 500 mg Documented by: CORINNE Ondansetron HCl (Ondansetron Hcl 4 Mg/2 Ml Vial) 4 mg IVPUSH Q8H PRN PRN Reason: Nausea and Vomiting Oxcarbazepine (Oxcarbazepine 300 Mg Tablet) 300 mg PO BID [facility] Last Admin: 01/03/22 11:09 Dose: 300 mg Documented by: CORINNE Sodium Chloride (0.9 % Sodium Chloride Flush 3 Ml Syringe) 3 ml IVFLUSH QSHIFT [facility] Last Admin: 01/03/22 11:10 Dose: 3 ml Documented by: CORINNE Labs CBC & Chem 7: 01/03/22 06:13 01/03/22 06:13 Labs: Laboratory Results - last 24 hr 01/02/22 01/02/22 01/03/22 12:04 15:15 06:13 MCV 95.8 MCH 32.5 MCHC 33.9 RDW 12.1 Plt Count 258 MPV 10.5 Immature Gran % (Auto) 0.3 Neut % (Auto) 56.1 Lymph % (Auto) 32.9 [place] % (Auto) 9.3 Eos % (Auto) 0.8 Baso % (Auto) 0.6 Lymph # (Auto) 3.0 [place] # (Auto) 0.8 Eos # (Auto) 0.1 Baso # (Auto) 0.1 Abs Immat Gran (auto) 0.03 Absolute Neuts (auto) 5.1 Absolute Nucleated RBC 0.000 Nucleated RBC % (auto) 0.0 D-Dimer High Sensitivty 269 Anion Gap Estim Creat Clear Calc Estimated GFR Fasting Glucose Calcium Total Bilirubin AST ALT Alkaline Phosphatase B-Natriuretic Peptide 164 H Total Protein Albumin COVID-19 (MANUELA) COVID-19 Clin Com 01/03/22 01/03/22 06:13 07:34 MCV MCH MCHC RDW Plt Count MPV Immature Gran % (Auto) Neut % (Auto) Lymph % (Auto) [place] % (Auto) Eos % (Auto) Baso % (Auto) Lymph # (Auto) [place] # (Auto) Eos # (Auto) Baso # (Auto) Abs Immat Gran (auto) Absolute Neuts (auto) Absolute Nucleated RBC Nucleated RBC % (auto) D-Dimer High Sensitivty Anion Gap 11 L Estim Creat Clear Calc 79.7 Estimated GFR > 60 Fasting Glucose 101 H Calcium 9.1 Total Bilirubin 1.1 H AST 18 ALT 19 Alkaline Phosphatase 47 B-Natriuretic Peptide Total Protein 5.7 L Albumin 3.7 COVID-19 (MANUELA) Negative COVID-19 Clin Com See Note Assessment and Plan (1) Seizure: Status: Acute (2) Hypoxia: Status: Acute Plan 71-year-old female with remote history of TBI presents today with son after what was described as a focal seizure. This event was witnessed again by ER personnel. In the ER neurology was contacted requesting patient to be admitted for further workup. Loading dose of Keppra was given. 1. Seizures(query new onset vs. new discovery) -no seizure activity over -continue Keppra BID until instructed otherwise by Neurology -MRI fails to demonstrate acute pathology to explain the seizures; await EEG -Neurology consult in am 2.Hypoxemia(unknown etiology) -respiratory eval for home O2 demonstrated ambulatory sats of 94 and 96% respectively on room air -no further workup 3. Depression(?BPD) -continue Trileptal/SSRI Lovenox Fulls Code Quality Stroke Does the patient have a stroke diagnosis?: No VTE Prior VTE?: No VTE Risk Level:: Medical - moderate - high VTE Device Contraindication: Treatment Not Indicated VTE Drug Contraindication: N/A - Med Ordered
[2022-01-03] MEDS: Enoxaparin Sodium 40 MG/0.4 ML SYRINGE SUBCUT (16:49)
[2022-01-03] MEDS: Atorvastatin Calcium 40 MG TABLET PO (20:11)
[2022-01-03] MEDS: Escitalopram Oxalate 10 MG TABLET PO (20:11)
--- NOTE | 2022-01-04 | EEG_ITS ---
The waking background activity consists of low voltage fast frequencies seen diffusely, intermixed with posterior low voltage 9 to 10 hertz alpha frequency. Intermittent slowing is seen in both temporal regions. A few episodes of left frontocentral theta and brief episodes of sharp and slow wave lasting seconds are seen without any associated clinical symptoms. Photic stimulation is without activation. Hyperventilation was omitted. IMPRESSION: This EEG is considered mildly abnormal due to intermittent bilateral temporal slowing and more frequent slowing in the left frontal parietal region with occasional sharp transients consistent with an underlying focus of cerebral irritability. These findings are not developed well enough to be diagnostic for seizure disorder. Clinical correlation is suggested. MD CORKY Thakkar/NAZARIO / [phone]
[2022-01-04 04:00] VITALS: BP 118/64; PULSE 72; RESP 17; TEMP 37; O2SAT 95
[2022-01-04 04:41] LABS: MANUAL DIFF FLAG NO
[2022-01-04 04:47] LABS: Basophils Absolute Auto 0.1 X10*3/uL (0.0-0.2); Basophils Percent Auto 0.6 % (0-2); Eosinophils Absolute Auto 0.2 X10*3/uL (0.0-0.4); Eosinophils Percent Auto 2.2 % (0-4); Hematocrit 36.8 % (37.0-47.0); Hemoglobin 12.3 g/dl (12.0-16.0); Imm Gran Abs Auto 0.03 X10*3/uL (0.00-0.03); Imm Gran Pct Auto 0.4 % (0.0-0.4); Lymphocytes Absolute Auto 3.1 X10*3/uL (1.2-4.9); Lymphocytes Percent Auto 39.8 % (20-40); Mean Corpuscular HGB Conc 33.4 g/dl (31.0-35.0); Mean Corpuscular Volume 95.8 fL (80.0-98.0); Mean Platelet Volume 10.3 fL (9.4-12.3); Monocytes Absolute Auto 0.7 X10*3/uL (0.1-1.2); Monocytes Percent Auto 9.1 % (2-11); Neutrophils Absolute Auto 3.7 x10*3/uL (2.0-8.3); Neutrophils Percent Auto 47.9 % (45-73); Platelet Count 247 X10*3/uL (160-400); Red Blood Count 3.84 X10*6/uL (4.20-5.50); White Blood Count 7.8 X10*3/uL (4.8-10.8)
[2022-01-04 05:15] LABS: Alanine Aminotransferase 13 U/L (0-31); Albumin Level 3.6 g/dL (3.5-5.0); Alkaline Phosphatase 46 U/L (39-117); Anion Gap 10 (12-20); Aspartate Amino Transferase 14 U/L (5-31); Bilirubin Total 0.9 mg/dL (0.0-1.0); Blood Urea Nitrogen 24 mg/dL (9-16); Calcium 8.9 mg/dL (8.4-10.2); Carbon Dioxide 30 mmol/L (22-29); Chloride 104 mmol/L (96-108); Creatinine Clr Calc Pharmacy 84.9; Estimated Glomerular Filt Rate > 60; Glucose Fasting 103 mg/dL (60-99); Potassium 3.7 mmol/L (3.3-5.1); Sodium 140 mmol/L (135-145); Total Protein 5.6 g/dL (6.5-8.0)
[2022-01-04 07:47] VITALS: BP 104/61; PULSE 62; RESP 18; TEMP 36.2; O2SAT 94
[2022-01-04] MEDS: Escitalopram Oxalate 20 MG TABLET PO (08:37)
[2022-01-04] MEDS: NaPROXEN 500 MG TABLET PO (08:37)
[2022-01-04] MEDS: OXcarbazepine 300 MG TABLET PO (08:37)
[2022-01-04] MEDS: levETIRAcetam 1,000 MG TABLET 1000 MG PO (08:38)
[2022-01-04] MEDS: 0.9 % Sodium Chloride Flush 3 ML SYRINGE IVFLUSH (08:40)
[2022-01-04 09:45] VITALS: O2SAT 92
[2022-01-04 12:00] VITALS: BP 109/76; PULSE 70; RESP 20; TEMP 36.3; O2SAT 95
--- NOTE | 2022-01-04 12:34 | MHC.CM.PN ---
meytt with pt who is indepdent cm intervention is not anticapted to be needed pt is vax x 3 and will have own trnapsort home
--- NOTE | 2022-01-04 13:27 | PM.NEUROCN ---
History of Present Illness Data of Consult Service Date: 01/04/22 Primary Care Provider: Unknown Physician HPI Reason for consult: Seizure disorder This is a 71-year-old womanWho had a head trauma in 2003 and sustained a large subdural hematoma over the left posterior frontoparietal area for which she needed a craniotomy and drainage. Following that she had partial seizures including twitching of the right face and curling of the right hand. For 4 or 5 years she was treated with Keppra which controlled the seizures but made her crazy. She went off the medications and then continued to have partial seizures still fall of 2020 when she saw a neurologist in [place] who started her on oxcarbazepine.She now presents with having had a partial seizure where her hand was twitching and she was staring and not responding and was therefore brought to the emergency room where she had a second episode. She was given a loading dose of Mechelle. She has had an EEG which shows mild abnormality with intermittent slowing and one brief episodes of some sharp and slow activity over the left frontal parietal region. Review of Systems Review of Systems: Denies chest pain Denies shortness of breath Denies nausea vomiting PMFSH Social History Social History Household Members: Children Housing: House Do you presently have visiting nurse or other home services: No Patient Tobacco Use Status: Never used Tobacco service: No Meds Allergies Allergy/AdvReac Type Severity Reaction Status Date / Time No Known Allergies Allergy Verified 01/02/22 11:59 Active Medications: Current Medications Acetaminophen (Acetaminophen 325 Mg Tablet) 650 mg PO Q6H PRN PRN Reason: Pain, Mild (Pain Scale 1-3) Last Admin: 01/02/22 20:14 Dose: 650 mg Documented by: Atorvastatin Calcium (Atorvastatin Calcium 40 Mg Tablet) 40 mg PO BEDTIME [facility] Last Admin: 01/03/22 20:11 Dose: 40 mg Documented by: Enoxaparin Sodium (Enoxaparin Sodium 40 Mg/0.4 Ml Syringe) 40 mg SUBCUT Q24H [facility] Last Admin: 01/03/22 16:49 Dose: 40 mg Documented by: Escitalopram Oxalate (Escitalopram Oxalate 10 Mg Tablet) 10 mg PO BEDTIME [facility]ENNA Last Admin: 01/03/22 20:11 Dose: 10 mg Documented by: Escitalopram Oxalate (Escitalopram Oxalate 20 Mg Tablet) 20 mg PO DAILY [facility] Last Admin: 01/04/22 08:37 Dose: 20 mg Documented by: Levetiracetam (Levetiracetam 1,000 Mg Tablet) 1,000 mg PO BID [facility] Last Admin: 01/04/22 08:38 Dose: 1,000 mg Documented by: Naproxen (Naproxen 500 Mg Tablet) 500 mg PO BID [facility] Last Admin: 01/04/22 08:37 Dose: 500 mg Documented by: Ondansetron HCl (Ondansetron Hcl 4 Mg/2 Ml Vial) 4 mg IVPUSH Q8H PRN PRN Reason: Nausea and Vomiting Oxcarbazepine (Oxcarbazepine 300 Mg Tablet) 300 mg PO BID [facility] Last Admin: 01/04/22 08:37 Dose: 300 mg Documented by: Sodium Chloride (0.9 % Sodium Chloride Flush 3 Ml Syringe) 3 ml IVFLUSH QSHIFT [facility] Last Admin: 01/04/22 08:40 Dose: 3 ml Documented by: Home Medications Medication Instructions Recorded Confirmed Last Taken Type atorvastatin 40 mg tablet 1 tab PO DAILY 01/02/22 01/02/22 01/02/22 History escitalopram oxalate 10 mg tablet 1 tab PO BEDTIME 01/02/22 01/02/22 01/01/22 History escitalopram oxalate 20 mg tablet 1 tab PO QAM 01/02/22 01/02/22 01/02/22 History meloxicam 15 mg tablet 1 tab PO DAILY 01/02/22 01/02/22 01/02/22 History oxcarbazepine 150 mg tablet 2 tab PO BID 01/02/22 01/02/22 01/02/22 History Physical Exam Vital Signs: Vital Signs: Last Vital Signs Temp 97.3 F 01/04/22 12:00 Pulse 70 01/04/22 12:00 Resp 20 01/04/22 12:00 BP 109/76 01/04/22 12:00 Pulse Ox 95 01/04/22 12:00 BMI result Body Mass Index 27.4 Const: Other: Awake alert oriented x3 no acute distress HENMT: Other: Evidence of tongue biting noted Resp: Other: Clear to auscultation bilaterally; no rales rhonchi or wheezes Cardio: Other: No S4; positive S1-S2; no S3 murmurs or gallops GI: Other: Soft nontender nondistended with normoactive bowel sounds x4 quadrants Neuro: Other: She is alert and oriented with normal intellectual functions. Cranial nerves 2-12 Normal. Muscle tone and strength normal in all 4 extremities. Deep tendon reflexes symmetrical. Plantar response flexor. Sensation is intact. Gait directly observed and is steady normal based. Cognition appropriate Extrem: Other: No edema bilateral Results Labs CBC & Chem 7: 01/04/22 04:25 01/04/22 04:25 Labs: Short CBC 01/04/22 Range/Units 04:25 WBC 7.8 (4.8-10.8) X10*3/uL Hgb 12.3 (12.0-16.0) g/dl Hct 36.8 L (37.0-47.0) % Plt Count 247 (160-400) X10*3/uL BMP 01/04/22 04:25 Sodium 140 Potassium 3.7 Chloride 104 Carbon Dioxide 30 H BUN 24 H Creatinine 0.61 Calcium 8.9 Liver Function 01/04/22 Range/Units 04:25 Total Bilirubin 0.9 (0.0-1.0) mg/dL AST 14 (5-31) U/L ALT 13 (0-31) U/L Alkaline Phosphatase 46 (39-117) U/L Albumin 3.6 (3.5-5.0) g/dL Assessment and Plan (1) Seizure: Status: Acute 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 In the past the seizures were controlled with Keppra but produced behavioral side effects or it was discontinued. She has recently started oxcarbazepine twice a day starting in July 2021. My recommendation would be to stop the Keppra at this point because of previous side effects with this drug and continue her oxcarbazepine and increase her dose to 600 mg 3 times a day. She is to followup next week with her neurologist in [place]. She can be discharged at this point (2) Hypoxia: Status: Acute Plan 71-year-old female with remote history of TBI presents today with son after what was described as a focal seizure. This event was witnessed again by ER personnel. In the ER neurology was contacted requesting patient to be admitted for further workup. Loading dose of Keppra was given. 1. Seizures(query new onset vs. new discovery) -no seizure activity over -continue Keppra BID until instructed otherwise by Neurology -MRI fails to demonstrate acute pathology to explain the seizures; await EEG -Neurology consult in am 2.Hypoxemia(unknown etiology) -respiratory eval for home O2 demonstrated ambulatory sats of 94 and 96% respectively on room air -no further workup 3. Depression(?BPD) -continue Trileptal/SSRI Lovenox Fulls Code Procedures Date of Service Date of Service: 01/04/22
--- NOTE | 2022-01-04 14:32 | MHC.CM.PN ---
PET MEDICALLY CLEARED FOR D/C HOME SELF-CARE, PT WILL RETURN TO HOME STATE, RADIOLOGY MAKING COPY OF PT'S IMAGING WHICH WILL BE READY WITHIN 30MIN, FAMILY FOR TRANSPORT.
--- NOTE | 2022-01-04 14:36 | PM.DS ---
DS: Providers Provider Date of Service: 01/04/22 Date of admission: 01/02/22 16:39 Date of discharge: 01/04/22 Primary care physician: Unknown Physician Consults: 01/02/22 16:57 Consult to Neurology Routine Consulting Provider: [facility] Reason for consultation: seizures Has provider been notified: No DS: Diagnosis Discharge Diagnosis (1) Seizure: Status: Acute (2) Hypoxia: Status: Acute DS: Summary Hospital Course Hospital Course: 71-year-old female with a history of remote traumatic brain injury (subdural requiring craniotomy and evacuation) presents with altered mental status and questionable observed seizure activity.? Patient presents with son who states this morning his mother woke up with a headache and took some Motrin went back to bed.? When she finally came down stairs she was sitting with him and he noticed her developed a stare that lasted approximately a minute to minute and half during which he observe some hand twitching.? He called the ambulance that she presented to the emergency room where she had another witnessed event by ER personnel.? ER workup including CT of the head and CTA of the chest failed to demonstrate any acute intracranial pathology.? Of note, her sats were in the high 80s when she arrived at the ER and required supplemental O2 to correct.? CTA was negative for PE; chest x-ray clear.? She has no significant smoking history or history of any chronic lung disease.? She was given a loading dose of Keppra at neurology's request and will be admitted? to telemetry on seizure precautions for further workup in the a.m.When speaking with son, he states his mother has been describing these nocturnal events for many years however has not followed through with evaluation.? Hospital Course Admitted to telemetry after loading dose of Keppra. No further seizures during hospitalization. MRI failed to demonstrate an acute focus for the seizures. Seen by Neurology who stated EEG was minimally abnormal and recommended increasing Trileptal 600 mg t.i.d.. Patient to follow-up with home neurologist and of week. At this point in time she is medically acceptable for discharge and flight home Time Spent with Patient Time attestation: Total time spent providing and/or coordinating discharge services: Discharge coordination time: Greater than 30 minutes Quality: Stroke Does the patient have a stroke diagnosis?: No Physical Exam Vital Signs: Vital Signs: Last Vital Signs Temp 97.3 F 01/04/22 12:00 Pulse 70 01/04/22 12:00 Resp 20 01/04/22 12:00 BP 109/76 01/04/22 12:00 Pulse Ox 95 01/04/22 12:00 BMI result Body Mass Index 27.4 Const: Other: Awake alert oriented x3 no acute distress HENMT: Other: Evidence of tongue biting noted Resp: Other: Clear to auscultation bilaterally; no rales rhonchi or wheezes Cardio: Other: No S4; positive S1-S2; no S3 murmurs or gallops GI: Other: Soft nontender nondistended with normoactive bowel sounds x4 quadrants Neuro: Other: Cranial nerves 2-12 are grossly intact as tested. Motor is 5/5 in all extremities. Sensation is intact. Gait directly observed and is steady normal based. Cognition appropriate Extrem: Other: No edema bilateral DS: Data Data Completed and Pending Labs on day of discharge: Laboratory Results - last 24 hr 01/04/22 01/04/22 04:25 04:25 WBC 7.8 RBC 3.84 L Hgb 12.3 Hct 36.8 L MCV 95.8 MCH 32.0 MCHC 33.4 RDW 12.0 Plt Count 247 MPV 10.3 Immature Gran % (Auto) 0.4 Neut % (Auto) 47.9 Lymph % (Auto) 39.8 [place] % (Auto) 9.1 Eos % (Auto) 2.2 Baso % (Auto) 0.6 Lymph # (Auto) 3.1 [place] # (Auto) 0.7 Eos # (Auto) 0.2 Baso # (Auto) 0.1 Abs Immat Gran (auto) 0.03 Absolute Neuts (auto) 3.7 Absolute Nucleated RBC 0.000 Nucleated RBC % (auto) 0.0 Sodium 140 Potassium 3.7 Chloride 104 Carbon Dioxide 30 H Anion Gap 10 L BUN 24 H Creatinine 0.61 Estim Creat Clear Calc 84.9 Estimated GFR > 60 Fasting Glucose 103 H Calcium 8.9 Total Bilirubin 0.9 AST 14 ALT 13 Alkaline Phosphatase 46 Total Protein 5.6 L Albumin 3.6 Discharge Plan Discharge Patient Disposition: Home, Self-Care Discharge Diagnosis: partial complex seizures Referrals: Physician,Unknown J [Primary Care Provider] - 1 Week Discharge Medications: New oxcarbazepine [Trileptal] 600 mg tablet 600 mg PO TID Qty: 21 0RF Continued atorvastatin 40 mg tablet 1 tab PO DAILY 0RF meloxicam 15 mg tablet 1 tab PO DAILY 0RF escitalopram oxalate 10 mg tablet 1 tab PO BEDTIME 0RF escitalopram oxalate 20 mg tablet 1 tab PO QAM 0RF Discontinued oxcarbazepine 150 mg tablet 2 tab PO BID 0RF Discharge Orders: Discharge Order (Routine); Ordered 01/04/22 Ordered By: Santos Castellano Diet: advance to usual diet Activity on Discharge: As tolerated Stand Alone Forms: Patient Portal Discharge page Care Plan Goals: Take Trileptal 600 b.i.d. as recommended. Follow-up with urologist as scheduled Health Concerns: Avoid alcohol until discussed with the neurologist Plan of Treatment: No Keppra. Trileptal is ordered Assessment: See discharge summary
== END 2022-01-04 15:35 | disposition home or self-care (01) | DRG 101 ==
LOC: HO.ED 15:57 → HO.EDOVER 16:45 → HO.S3 01-03 12:08
PROVIDERS: Admitting Provider Hospitalist; Emergency Provider Emergency Medicine; Visit Provider Hospitalist
DX: G40.109 Localization-related (focal) (partial) symptomatic epilepsy and epileptic syndromes with simple partial seizures, not intractable, without status epilepticus (principal); F32.A Depression, unspecified; Z20.822 Contact with and (suspected) exposure to COVID-19; R09.02 Hypoxemia; Z87.820 Personal history of traumatic brain injury; Z79.1 Long term (current) use of non-steroidal anti-inflammatories (NSAID); Z79.899 Other long term (current) drug therapy
CPT/HCPCS: 36415; 70450; 70551; 71045; 71275; 72125; 80048; 80053; 82550; 82947; 83880; 84484; 85025; 85379; 85610; 85730; 87635; 93005; 95816; 99285; J1650; Q9967